=== PATIENT | female | born 1990 | race Caucasian/White ===

== ENCOUNTER 2017-10-09 10:23 | Day surgery (SDC) | payer OTHER ==
[2017-10-05 14:56] VITALS: BMI 22.9
[2017-10-09] MEDS ORDERED: MIDAZOLAM HCL 2 MG/2 ML SINGLE DOSE VIAL ONE (12:18)
[2017-10-09] MEDS ORDERED: PROPOFOL 20 ML ONE ×2 (12:18→12:57)
[2017-10-09] MEDS ORDERED: BUPIVACAINE HCL/EPINEPHRINE/PF 30 ML VIAL IJ ONE (12:25)
[2017-10-09] MEDS ORDERED: ONDANSETRON 4 MG/2 ML VIAL IVPUSH PRN (13:13)
[2017-10-09] MEDS ORDERED: oxyCODONE HCL 5 MG TABLET PO PRN ×2 (13:13)
[2017-10-09] MEDS ORDERED: LACTATED RINGERS SOLUTION 1,000 ML IV SCH (13:15)
--- NOTE | 2017-10-09 13:28 | OP ---
Operative Note - Note: Operative Date: 10/09/17 Pre-Operative Diagnosis: right knee MMT Operation: RKA, anteromedial synovectomy. Surgeon: Lamont Pablo Anesthesia: Local Operative Report Dictated: Yes
--- NOTE | 2017-10-09 13:30 | DS ---
Physical Examination Vital Signs: Vital Signs Temperature 98.1 F 10/09/17 11:09 Pulse Rate 68 10/09/17 11:09 Respiratory Rate 18 10/09/17 11:09 Blood Pressure 111/59 10/09/17 11:09 O2 Sat by Pulse Oximetry (%) 100 10/09/17 11:09 Discharge Summary Reason For Visit: MEDIAL MENISCAL TEAR RIGHT KNEE Condition: Good - Instructions Diet, Activity, Other Instructions: Post Operative Instructions: Knee Arthroscopy Dr Lamont Pablo 1. Pain following an arthroscopy is variable. Some patients will have more pain than others. You have been provided with a prescription for medication that contains a narcotic. You are not allowed to drive while on this medication. You should NOT take Tylenol (Acetaminophen) when taking the pain medication ( it will result in an overdose). Feel free to take medications such as Ibuprofen or Naprosyn in addition to the pain medicine if you do not have any problems with the NSAID class of medications. 2. You should remove the bandages and shower in 24 hours unless directed otherwise. You are not allowed to bathe or go swimming until you post-surgical visit. Put band-aids on the incisions after your shower and do not put any creams or lotions over the incisions. 3. You are allowed to put all your weight on the leg and bend your knee 4. Apply ice to the knee for 15 min every hour or so. You may continue this for as many days as you like. 5. Please call the office to schedule a visit to have your sutures removed. 6. If for any reason you believe you may have an infection or are concerned, please feel free to call me. I can be reached through our office number 24 hours a day. 7. Please call our office with any questions; we will review the surgical findings during your post operative visit. Disposition: HOME - Home Medications Comprehensive Discharge Medication List: Ambulatory Orders Methylphenidate HCl [Concerta] 36 mg PO DAILY 10/05/17
[2017-10-09] MEDS ORDERED: ONDANSETRON 4 MG/2 ML VIAL ONE (13:46)
[2017-10-09 14:34] VITALS: TEMP 98.2
[2017-10-09] MEDS ORDERED: oxyCODONE HCL 5 MG TABLET ONE (14:41)
[2017-10-09 16:06] VITALS: BP 112/64; PULSE 56
--- NOTE | 2017-10-13 15:35 | PATH ---
Surgical Pathology Report Patient Name: TAPAN DONALD [facility]. Rec. #: [id number] /Age/Gender: 1990 (Age: 27) / F Account: [id number] Location: [facility] Taken: 10/09/2017 Received: 10/09/2017 Reported: 10/13/2017 Physicians: Lamont Pablo M.D. Specimen(s) Received RIGHT KNEE SHAVINGS Clinical History Medial meniscal tear right knee Final Diagnosis KNEE, RIGHT, ARTHROSCOPIC SHAVING: SYNOVIUM WITH NO SIGNIFICANT PATHOLOGIC CHANGES Electronically Signed Van Felipe M.D. Gross Description Received in formalin labeled "right knee shavings," is a 2.5 x 1.4 x 0.2 cm aggregate of levy-yellow soft tissue fragments. The formalin is filtered and the specimen is entirely submitted in one cassette. /10/12/2017 saudi10/12/2017
== END 2017-10-09 16:12 | disposition home or self-care (01) ==
LOC: FASU 10:23
PROVIDERS: ATTEND Orthopaedic Surgery
PROC: 0SBC4ZZ Excision of Right Knee Joint, Percutaneous Endoscopic Approach (ICD-10-PCS; 2017-10-09)
PROC: 0SBC4ZZ Excision of Right Knee Joint, Percutaneous Endoscopic Approach (ICD-10-PCS; principal; 2017-10-09 13:06)
DX: S83.241A Other tear of medial meniscus, current injury, right knee, initial encounter (principal); X58.XXXA Exposure to other specified factors, initial encounter; Y93.89 Activity, other specified; Y92.89 Other specified places as the place of occurrence of the external cause; M65.861 Other synovitis and tenosynovitis, right lower leg
CPT/HCPCS: 84703; 88304-TC; 94760